=== PATIENT | female | born 1985 | race Caucasian/White ===

== ENCOUNTER → 2022-12-07 08:24 | Outpatient (CLI) | payer BC, SELFPAY ==
--- NOTE | ~2022-12-07 | MMUS_ITS ---
EXAMINATION: MM diagnostic reina BI w wally, US breast BI complete HISTORY: Right nipple pain TECHNIQUE: Additional 3-D tomosynthesis images of the breasts were performed and synthetic 2-D images were generated. CAD analysis was submitted and interpreted. High resolution complete bilateral breas t ultrasound was performed. COMPARISON: None BREAST PARENCHYMAL COMPOSITION: BREAST PARENCHYMAL COMPOSITION: There are scattered areas of fibroglandular density. FINDINGS: MAMMOGRAPHIC FINDINGS: Suspicious masses, calcifications or architectural distortion in either breast to suggest malignancy. ULTRASOUND: Complete bilateral US of all 4 quadrants of the breasts and retroareolar region was reviewed. Normal heterogeneous echotexture without focal solid or cystic mass. IMPRESSION: 1. No evidence for malignancy in either breast. 2. Routine yearly screening mammogram and regular clinical breast examination are recommended. BI-RADS Category 1: Negative Reviewed, dictated and finalized at location A. WRITER IMPRESSION: 1. No evidence for malignancy in either breast. 2. Routine yearly screening mammogram and regular clinical breast examination a re recommended. BI-RADS Category 1: Negative
== END ==
PROVIDERS: PCP Advanced Practice Midwife; Visit Provider Obstetrics & Gynecology Gynecology
DX: N64.4 Mastodynia (principal)
CPT/HCPCS: 76641; 77062; 77066; G0279